=== PATIENT | male | born 1945 | race Caucasian/White ===

== ENCOUNTER 2021-12-08 14:33 | Day surgery (SDC) | payer OTHER ==
[2021-12-08] VITALS (13 sets, daily range): BP systolic 146–166; BP diastolic 63–75
[~2021-12-08] VITALS: Ht 170.2 cm; Wt 90.7 kg
[2021-12-08] MEDS ORDERED: ATOR-2 PO (15:34)
[2021-12-08] MEDS ORDERED: AEC81 PO (15:34)
[2021-12-08] MEDS ORDERED: APIX5TAB PO (15:34)
[2021-12-08] MEDS ORDERED: INSU100V IV (15:34)
[2021-12-08] MEDS ORDERED: PANT40TA54 PO (15:34)
[2021-12-08] MEDS ORDERED: ISOS30TA92 PO (15:34)
[2021-12-08] MEDS ORDERED: LOSA50TA64 PO (15:34)
[2021-12-08] MEDS ORDERED: IOHEXOL-350 50ML VIAL IV ONE (16:43)
[2021-12-08] MEDS ORDERED: SODIUM BICARB 50MEQ 50ML VIAL 50 ML ONE (16:43)
[2021-12-08] MEDS ORDERED: IOHEXOL 350 MG/ML 100ML INFUS..BTL IV ONE (16:43)
[2021-12-08] MEDS ORDERED: HEPARIN 10,000 UNIT/10ML (1,000 UNIT/ML) VIAL ONE ×2 (16:43→17:46)
[2021-12-08] MEDS ORDERED: ATROPINE 1MG SYG IVP ONE (16:43)
[2021-12-08] MEDS ORDERED: LIDOCAINE HCL 400MG/20ML VIAL ONE (16:44)
[2021-12-08] MEDS ORDERED: NICARDIPINE 25MG INJ IV ONE (16:55)
[2021-12-08] MEDS ORDERED: NITROGLYCERIN 50MG VIAL ONE (16:55)
[2021-12-08] MEDS ORDERED: MIDAZOLAM HCL 1 MG/ML 2ML VIAL ONE (17:23)
[2021-12-08] MEDS ORDERED: FENTANYL CITRATE PF 50 MCG/1 ML 2ML VIAL ONE (17:24)
[2021-12-08] MEDS ORDERED: CLOPIDOGREL 300MG TAB ONE (18:07)
[2021-12-08] MEDS ORDERED: AMLODIPINE 5 MG TAB PO ONE (19:00)
[2021-12-08] MEDS ORDERED: 0.9%NACL 1000ML 1,000 ML IV SCH (19:00)
[2021-12-09] MEDS ORDERED: CLOPIDOGREL 75MG TAB PO SCH (09:00)
[2021-12-09] MEDS ORDERED: ASPIRIN 81MG CHEW TAB PO SCH (09:00)
== END 2021-12-09 00:30 | disposition home or self-care (01) ==
LOC: DAH 14:33
PROVIDERS: ATTEND Internal Medicine Cardiovascular Disease
DX: I21.4 Non-ST elevation (NSTEMI) myocardial infarction (principal); I25.10 Atherosclerotic heart disease of native coronary artery without angina pectoris; I44.0 Atrioventricular block, first degree; I44.7 Left bundle-branch block, unspecified; I49.1 Atrial premature depolarization; E11.9 Type 2 diabetes mellitus without complications; I10 Essential (primary) hypertension; E78.5 Hyperlipidemia, unspecified; I48.0 Paroxysmal atrial fibrillation; Z79.01 Long term (current) use of anticoagulants; Z95.5 Presence of coronary angioplasty implant and graft
CPT/HCPCS: 82948 ×2; 93005; 93458; A4216; A4222; A4223 ×2; A4606; A4663; C1769 ×2; C1874 ×2; C1887 ×2; C1894; C9600 ×2; J1644 ×4; J2250; J3010; J3490 ×4; Q9965 ×2; Q9967 ×2; 99156; 99157; J0461